=== PATIENT | female | born 1970 ===

== ENCOUNTER 2019-02-27 06:57 | Day surgery (SDC) | payer BC ==
[~2019-02-27] VITALS: Ht 165.1 cm; Wt 61.2 kg
[2019-02-27] VITALS (8 sets, daily range): BP systolic 101–111; BP diastolic 67–73
[2019-02-27] MEDS ORDERED: LR 1000ml 1,000 ML IVLG SCH ×2 (07:00→07:08)
--- NOTE | 2019-02-27 07:10 | Anethesia Preoperative Eval ---
Anesthesia Pre-op PMH/ROS General Date of Evaluation: Feb 27, 2019 Time of Evaluation: 07:09 Anesthesiologist: myah ASA Score: ASA 2 Mallampati Score Class I : Soft palate, uvula, fauces, pillars visible Class II: Soft palate, uvula, fauces visible Class III: Soft palate, base of uvula visible Class IV: Only hard plate visible Mallampati Classification: Class II Surgeon: geneva Diagnosis: abdominal pain, colon screening Surgical Procedure: egd/colonoscopy Anesthesia History: none Social History: smoking - former smoker Family History: no anesthesia problems Allergies: Coded Allergies: POLLEN EXTRACTS (Verified Allergy, Intermediate, watery eyes; sneezing, ) Medications: see eMAR Patient NPO?: Yes Past Medical History Gastrointestinal/Genitourinary: Reports: GERD, other - abdominal pain HEENT: Reports: other - sinusitis PSxH Narrative: appendectomy, right breast lump removed Anesthesia Pre-op Phys. Exam Physician Exam Last Vital Signs Date Time Temp Pulse Resp B/P (MAP) Pulse Ox O2 Delivery O2 Flow Rate FiO2 02/27/19 07:49 Room Air 02/27/19 07:47 97.6 68 18 103/71 100 Constitutional: NAD Neurologic: CN 2-12 intact Cardiovascular: RRR Respiratory: CTA Gastrointestinal: S/NT/ND Airway Exam Mallampati Score: Class II MO: full Neck: flexible TMD: 2fb ROM: full Teeth: intact Anesthesia Pre-op A/P Risk Assessment & Plan Assessment: asa2 Plan: mac Status Change Before Surgery: No Pre-Antibiotics Drug: Dariana Lopez MD Feb 27, 2019 07:10
[2019-02-27] MEDS ORDERED: fentaNYL 100 mcg/2 mL IV PRN (07:15)
[2019-02-27] MEDS ORDERED: DiphenhydrAMINE 50mg/ml Inj IVP PRN (07:15)
[2019-02-27] MEDS ORDERED: Midazolam 2mg/2ml Inj IVP PRN (07:15)
[2019-02-27] MEDS ORDERED: Atropine Inj 1mg/10ml Syr IV PRN (07:15)
[2019-02-27] MEDS ORDERED: CLARITIN-D 121 EAC1 ORAL (07:58)
[2019-02-27] MEDS ORDERED: Atropine Sulfate 0.4mg/ml inj ONE (08:00)
[2019-02-27] MEDS ORDERED: LR 1000ml ONE (08:00)
[2019-02-27] MEDS ORDERED: Propofol 200mg/20ml IV ONE (08:00)
[2019-02-27] MEDS ORDERED: Lidocaine 1% MPF 10mg/ml 5ml ONE (08:00)
[2019-02-27] MEDS ORDERED: estrogen TOPIC (08:02)
--- NOTE | 2019-02-27 08:40 | Short Stay Surgery H&P ---
History of Present Illness History of Present Illness Chief Complaint See attached H&P HPI Mariella Marroquin is a 48 year old female who was admitted on for Colon Screening, Abdominal Pain Patient History Allergies: Coded Allergies: POLLEN EXTRACTS (Verified Allergy, Intermediate, watery eyes; sneezing, ) Medication History Scheduled Loratadine/Pseudoephedrine (Claritin-D 12 Hour Tablet), 1 TAB ORAL EVERY 12 HOURS, (Reported) [estrogen], 1 APPLIC TOPIC DAILY, (Reported) Physical Exam Vital Signs Last Vital Signs Date Time Temp Pulse Resp B/P (MAP) Pulse Ox O2 Delivery O2 Flow Rate FiO2 02/27/19 07:49 Room Air 02/27/19 07:47 97.6 68 18 103/71 100 Labs Laboratory Tests Test 02/27/19 07:15 Urine HCG, Qualitative Negative (NEGATIVE) Plan Attestation Are the patient's medical conditions optimized for surgery? Iliana Samayoa MD Feb 27, 2019 08:40
--- NOTE | 2019-02-27 08:41 | Pre-Procedure Note/Attestation ---
Pre-Procedure Note/Attestation Complete Prior to Procedure Planned Procedure: not applicable Procedure Narrative: EGD colon Indications for Procedure Pre-Operative Diagnosis: abd pain screening Attestation I attest that I discussed the nature of the procedure; its benefits; risks and complications; and alternatives (and the risks and benefits of such alternatives ), prior to the procedure, with the patient (or the patient's legal marketing representative). I attest that, if there was a reasonable possibility of needing a blood transfusion, the patient (or the patient's legal marketing representative) was given the [facility] standardized written summary, pursuant to the [place] Blood Safety Act ([place] Health and Safety Code # 1645, as amended). I attest that I re-evaluated the patient just prior to the surgery and that there has been no change in the patient's H&P, except as documented below: Iliana Samayoa MD Feb 27, 2019 08:41
--- NOTE | 2019-02-27 09:56 | Immediate Post-Op Evaluation ---
Immediate Post-Op Evalulation Immediate Post-Op Evalulation Procedure: egd/colonoscopy w/bx Date of Evaluation: Feb 27, 2019 Time of Evaluation: 09:56 IV Fluids: 450ml lr Blood Products: none Estimated Blood Loss: negligible Blood Pressure Systolic: 105 Blood Pressure Diastolic: 73 Pulse Rate: 71 Respiratory Rate: 18 O2 Sat by Pulse Oximetry: 100 Temperature (Fahrenheit): 97.0 Pain Score (1-10): 0 Nausea: No Vomiting: No Complications none Patient Status: awake, reacts, patent Hydration Status: adequate Drug: Dariana Lopez MD Feb 27, 2019 09:56
--- NOTE | 2019-02-27 09:57 | 48 Hour Post Anesthesia Eval ---
Post Anesthesia Evaluation Procedure: egd/colonoscopy w/bx Date of Evaluation: Feb 27, 2019 Time of Evaluation: 09:58 Blood Pressure Systolic: 101 0: 71 Pulse Rate: 71 Respiratory Rate: 18 Temperature (Fahrenheit): 97.6 O2 Sat by Pulse Oximetry: 100 Airway: patent Nausea: No Vomiting: No Pain Intensity: 0 Hydration Status: adequate Cardiopulmonary Status: stable Mental Status/LOC: patient returned to baseline Post-Anesthesia Complications: none Follow-up care needed: N/A Dariana Amado MD Feb 27, 2019 09:57
--- NOTE | 2019-02-27 22:15 | Operative Note - Dictated ---
DATE OF OPERATION: 02/27/2019 GASTROENTEROLOGY PROCEDURE REPORT PROCEDURE: Upper gastrointestinal endoscopy with biopsy as well as colonoscopy with biopsy and snare polypectomy. SURGEON: Iliana Samayoa M.D. ANESTHESIA: Please see the separate anesthesiologist notes for details. PRE-ENDOSCOPIC DIAGNOSES: Abdominal pain and diarrhea as well as need for screening colonoscopy. POST-ENDOSCOPIC DIAGNOSES: 1. A 4 cm hiatal hernia. 2. Healing gastric ulcer in the proximal antrum, status post biopsy. 3. Random biopsy of the duodenum and lower esophagus at 34 cm (with the Z-line being at 35 cm). 4. Normal terminal ileum to about 10 cm, status post biopsy. 5. Normal colonic mucosa, status post random biopsy of the right colon and left colon. 6. An 8 to 9 millimeter semi pedunculated colonic polyp at the distal transverse colon, status post hot snare polypectomy. DESCRIPTION OF PROCEDURE: Procedure, its risks, indications, alternatives, and possible complications were explained the patient and informed consent was obtained. The patient was then sedated in the left lateral decubitus position. A diagnostic upper endoscope was introduced through the oropharynx and advanced to the duodenum. The endoscope was then gradually withdrawn and the rectal exam was done. The colonoscope was introduced in the rectum and advanced to the terminal ileum. The colonoscope was then gradually withdrawn and examination was concluded with retroflexed view of the rectum. The colonoscope was removed. The patient was sent to recovery in good condition. Findings and procedures, endoscopy, and colonoscopy are listed above. The patient was sent to recovery in good condition. COMPLICATIONS: None. RECOMMENDATIONS: 1. Follow up biopsy results. 2. Reflux precautions. 3. Begin famotidine 40 mg p.o. at bedtime. 4. Outpatient followup. Iliana Samayoa M.D. DR: ORIN JOB#: [id number] CC: Iliana Samayoa M.D.; Fax#: [phone]
== END 2019-02-27 10:45 | disposition home or self-care (01) ==
LOC: GAS 06:57
DX: Z12.11 Encounter for screening for malignant neoplasm of colon (principal); K44.9 Diaphragmatic hernia without obstruction or gangrene; R10.9 Unspecified abdominal pain; R19.7 Diarrhea, unspecified; K63.5 Polyp of colon; D12.3 Benign neoplasm of transverse colon; K21.9 Gastro-esophageal reflux disease without esophagitis; Z90.89 Acquired absence of other organs; Z87.891 Personal history of nicotine dependence
CPT/HCPCS: 43239; 45380; 45385; 81025; J0461; J2704; J7120; 94003; 94150